=== PATIENT | female | born 1975 | race Caucasian/White ===

== ENCOUNTER 2016-12-22 07:53 | Day surgery (SDC) | payer OTHER ==
[~2016-12-22] VITALS: Ht 165.1 cm; Wt 90.7 kg
[~2016-12-22 07:53] MED LIST: CYCLOBENZAPRINE10 MG PO; DECADRON1 MG PO; FLEXERIL10 MG PO; JUNEL1 EAC1 PO; OPANA ER10 MG PO; TOPAMAX50 MG PO
[2016-12-22 08:58] VITALS: BP 136/68
[2016-12-22] MEDS ORDERED: MOTRIN800 MG PO (11:49)
[2016-12-22 12:53] VITALS: BP 139/93
[2016-12-22 14:15] VITALS: BP 142/72
== END 2016-12-22 14:37 | disposition home or self-care (01) ==
LOC: SDC 07:53
DX: N93.9 Abnormal uterine and vaginal bleeding, unspecified (principal); N84.0 Polyp of corpus uteri; Z30.2 Encounter for sterilization; N83.291 Other ovarian cyst, right side; N85.4 Malposition of uterus; F17.200 Nicotine dependence, unspecified, uncomplicated; E78.5 Hyperlipidemia, unspecified; Z82.49 Family history of ischemic heart disease and other diseases of the circulatory system; Z80.3 Family history of malignant neoplasm of breast; Z82.5 Family history of asthma and other chronic lower respiratory diseases; Z88.8 Allergy status to other drugs, medicaments and biological substances
CPT/HCPCS: 88302; 88305; J0330; J1100; J1885; J2250; J2405; J3010